=== PATIENT | female | born 1995 | race American Indian/Alaskan Native ===

== ENCOUNTER 2017-01-18 23:00 | Inpatient (IN) | payer MEDICAID ==
[2017-01-19 01:00] VITALS: BMI 22.6
--- NOTE | 2017-01-19 01:33 | ED PDOC ---
Arrival/HPI - General Chief Complaint: ENT Problem Time Seen by Provider: 01/19/17 01:28 Historian: Patient - History of Present Illness Narrative History of Present Illness (Text): 01/19/17 01:32 Linda Bond is a 21 year old female who presents to the Emergency department complaining of frontal headache since yesterday. Patient also reports associated sore throat and dizziness. Patient states she feels unsteady while ambulating. Patient denies any fever, chills, chest pain, shortness of breath, cough, nausea, vomiting, diarrhea, urinary symptoms, back pain, neck pain/ stiffness, or any other complaints. Time/Duration: 24 hours (yesterday) Symptom Onset: Gradual Symptom Course: Unchanged Activities at Onset: Rest, Light Context: Home Past Medical History - Provider Review Nursing Documentation Reviewed: Yes - Psychiatric Hx Substance Use: No Family/Social History - Physician Review Nursing Documentation Reviewed: Yes Family/Social History: No Known Family HX Smoking Status: Never Smoked Hx Alcohol Use: No Hx Substance Use: No Allergies/Home Meds Allergies/Adverse Reactions: Allergies No Known Allergies Allergy (Verified 01/19/17 01:00) Home Medications: Home Meds Medication Instructions Recorded Confirmed Ibuprofen [Motrin] 600 mg PO Q6 01/19/17 01/19/17 Lidocaine 2% Viscous [Lidocaine 2% 15 mg PO Q3 01/19/17 01/19/17 Viscous] Review of Systems - Physician Review All systems were reviewed & negative as marked: Yes - Review of Systems Constitutional: Normal. absent: Fevers Eyes: Normal ENT: Sore Throat Respiratory: Normal. absent: SOB, Cough Cardiovascular: Normal. absent: Chest Pain Gastrointestinal: Normal. absent: Abdominal Pain, Constipation, Diarrhea, Nausea, Vomiting Genitourinary Female: Normal. absent: Dysuria, Frequency, Hematuria, Urine Output Changes Musculoskeletal: Normal. absent: Back Pain, Neck Pain Skin: Normal Neurological: Headache, Dizziness Endocrine: Normal Hemo/Lymphatic: Normal Psychiatric: Normal Physical Exam Vital Signs Reviewed: Yes Vital Signs Temp Pulse Resp BP Pulse Ox 01/19/17 05:52 84 17 82/48 L 96 01/19/17 02:52 97.9 F 95 H 18 102/60 99 01/19/17 00:59 97.8 F 94 H 18 97/49 L 98 Temperature: Afebrile Blood Pressure: Normal Pulse: Regular Respiratory Rate: Normal Appearance: Positive for: Well-Appearing, Non-Toxic, Comfortable Pain Distress: None Mental Status: Positive for: Alert and Oriented X 3 - Systems Exam Head: Present: Atraumatic, Normocephalic Pupils: Present: PERRL Extroacular Muscles: Present: EOMI Conjunctiva: Present: Normal Ears: Present: NORMAL TM Mouth: Present: Moist Mucous Membranes Pharnyx: Present: Normal Neck: Present: Normal Range of Motion. No: Meningeal Signs Respiratory/Chest: Present: Clear to Auscultation, Good Air Exchange. No: Respiratory Distress, Accessory Muscle Use Cardiovascular: Present: Regular Rate and Rhythm, Normal S1, S2. No: Murmurs Abdomen: Present: Normal Bowel Sounds. No: Tenderness, Distention, Peritoneal Signs Back: Present: Normal Inspection Upper Extremity: Present: Normal Inspection. No: Cyanosis, Edema Lower Extremity: Present: Normal Inspection. No: Edema Neurological: Present: GCS=15, CN II-XII Intact, Speech Normal, Motor Func Grossly Intact, Normal Sensory Function Skin: Present: Warm, Dry, Normal Color. No: Rashes Psychiatric: Present: Alert, Oriented x 3, Normal Insight, Normal Concentration Medical Decision Making ED Course and Treatment: 01/19/17 01:32 Impression: 21 year old female complaining of headache, sore throat, and dizziness since yesterday. Plan: -- Labs -- Urinalysis -- IV fluids -- Tylenol -- Reassess and disposition Progress Notes: 01/19/17 04:32 Reviewed radiology, CT Head shows: No fractures, no intracranial hemorrhage, no mass effect or midline shift, no findings to suggest acute intracranial pathology within limits of axial noncontrast CT examination. Please note that the majority of the paranasal sinuses are not included, and this study does not exclude sinusitis. 01/19/17 04:58 Case discussed with medical radiation tech, who is aware and agrees with plan. 01/19/17 05:[address] Mullins, who is aware and agrees with plan. Accepts pt in to hospitalist service. Pt will go to Med Surge observation for Med Surge observation for dizziness and anemia. - Lab Interpretations Lab Results: 01/19/17 01:48 01/19/17 01:48 Lab Results 01/19/17 01:48: WBC 9.6, RBC 4.31, Hgb 8.6 L, Hct 28.3 L, MCV 65.7 L, MCH 20.0 L , MCHC 30.4 L, RDW 17.7 H, Plt Count 176, MPV 8.8, Sodium 136, Potassium 4.0, Chloride 98, Carbon Dioxide 26, Anion Gap 16, BUN 9, Creatinine 0.6, Est GFR ( Amer) > 60, Est GFR (Non-Af Amer) > 60, Random Glucose 88, Calcium 9.4, Total Bilirubin 0.5, AST 22, ALT 31, Alkaline Phosphatase 70, Total Protein 8.2 , Albumin 4.1, Globulin 4.0, Albumin/Globulin Ratio 1.0 L, Urine Color Yellow, Urine Appearance Cloudy, Urine pH 6.0, Ur Specific [place] >= 1.030, Urine Protein 100 H, Urine Glucose (UA) Negative, Urine Ketones >=80, Urine Blood Negative, Urine Nitrate Negative, Urine Bilirubin Negative, Urine Urobilinogen 2.0 H, Ur Leukocyte Esterase Small H, Urine RBC Negative, Urine WBC 5 - 10, Ur Epithelial Cells 6 - 8, Urine Bacteria Large, Urine Other Mucus, Urine HCG, Qual Negative I have reviewed the lab results: Yes - RAD Interpretation Narrative RAD Interpretations (Text): CT Head shows: Brain: Unremarkable. No hemorrhage. No significant white matter disease. No edema. Ventricles: Unremarkable. No ventriculomegaly. Bones/joints: Unremarkable. No acute fracture. Soft tissues: Unremarkable. Sinuses: There is minimal inclusion of the paranasal sinuses with no pathology of the included small areas of the frontal, posterior ethmoid, and sphenoid sinuses. A Mastoid air cells: Unremarkable as visualized. No mastoid effusion. IMPRESSION: No fractures, no intracranial hemorrhage, no mass effect or midline shift, no findings to suggest acute intracranial pathology within limits of axial noncontrast CT examination. Please note that the majority of the paranasal sinuses are not included, and this study does not exclude sinusitis. Radiology Orders: 01/19/17 03:46 HEAD W/O CONTRAST [CT] Stat Speech And Language Specialist: Radiologist - Medication Orders Current Medication Orders: Discontinued Medications Acetaminophen (Tylenol 325mg Tab) 650 mg PO STAT STA Stop: 01/19/17 01:35 Last Admin: 01/19/17 02:01 Dose: 650 MG MAR Pain/Vitals Document 01/19/17 02:01 [email or web address] (Rec: 01/19/17 02:02 [email or web address] [email or web address] Pain Reassessment Is This A Pain ReAssessment? No Sleep Is patient sleeping during reassessment? No Presence of Pain Presence of Pain Yes Pain Scale Used Pain Scale Used Numeric Location Pain Location Body Site Generalized Description Constant Intensity 5 Scale Used Numeric Pain Behavior Facial Grimacing Aggravating Factors Changing Position Aggravating Factors Changing Position Sodium Chloride (Sodium Chloride 0.9%) 1,000 mls @ 999 mls/hr IV .Q1H1M STA Stop: 01/19/17 02:34 Last Admin: 01/19/17 02:00 Dose: 999 MLS/HR eMAR Start Stop Document 01/19/17 02:00 [email or web address] (Rec: 01/19/17 02:00 [id number]) Intravenous Solution Start Date 01/19/17 Start Time 02:00 End Date 01/19/17 - Scribe Statement The provider has reviewed the documentation as recorded by the Anirudh Almaguer Provider Attestation: All medical record entries made by the Anirudh were at my direction and personally dictated by me. I have reviewed the chart and agree that the record accurately reflects my personal performance of the history, physical exam, medical decision making, and the department course for this patient. I have also personally directed, reviewed, and agree with the discharge instructions and disposition. Disposition/Present on Arrival - Present on Arrival Any Indicators Present on Arrival: No History of DVT/PE: No History of Uncontrolled Diabetes: No Urinary Catheter: No History of Decub. Ulcer: No History Surgical Site Infection Following: None - Disposition Have Diagnosis and Disposition been Completed?: Yes Diagnosis: Dizziness, Anemia Disposition: HOSPITALIZED Disposition Time: 05:08 Patient Plan: Observation Patient Problems: Current Active Problems Problem Status Diagnosed Anemia Acute Dizziness Acute Condition: STABLE
[2017-01-19] MEDS ORDERED: Sodium Chloride 0.9% 1,000 ML IV STA (01:34)
[2017-01-19 02:14] LABS: URINE BILIRUBIN NEGATIVE (NEGATIVE); URINE BLOOD NEGATIVE (NEGATIVE); URINE GLUCOSE (UA) NEGATIVE (NEGATIVE); URINE KETONE >=80 mg/dL (NEGATIVE); URINE LEUKOCYTE ESTERASE SMALL Leu/uL (NEGATIVE); URINE PROTEIN 100 mg/dL (<30 mg/dL)
[2017-01-19 02:21] LABS: URINE APPEARANCE CLOUDY (CLEAR); URINE COLOR YELLOW (YELLOW)
[2017-01-19 02:27] LABS: ALKALINE PHOSPHATASE 70 U/L (38-133); ALT/SGPT 31 U/L (7-56); AST/SGOT 22 U/L (15-39); BILIRUBIN,TOTAL 0.5 mg/dL (0.2-1.3); BLOOD UREA NITROGEN 9 mg/dL (7-21); CALCIUM 9.4 mg/dL (8.4-10.5); CARBON DIOXIDE 26 mmol/L (21-33); CHLORIDE 98 mmol/L (98-107); GFR AFRICAN-AMERICAN > 60; GLUCOSE,RANDOM 88 mg/dL (70-110); SODIUM 136 mmol/L (132-148); TOTAL PROTEIN 8.2 g/dL (5.8-8.3)
[2017-01-19 02:33] LABS: HEMATOCRIT 28.3 % (36.0-48.0); MEAN CELL VOLUME 65.7 fL (80.0-105.0); MEAN CORPUSCULAR HGB CONC 30.4 g/dl (31.0-37.0); MEAN PLATELET VOLUME 8.8 fl (7.0-11.0); PLATELET COUNT 176 10^3/uL (120.0-450.0); RED CELL DISTRIBUTION WIDTH 17.7 % (11.5-14.5); WHITE BLOOD COUNT 9.6 10^3/ul (4.5-11.0)
[2017-01-19 02:36] LABS: URINE RBC NEGATIVE /hpf (0-2)
[2017-01-19 02:37] LABS: URINE BACTERIA LARGE (NEG)
--- NOTE | 2017-01-19 04:30 | CT ---
EXAM: CT Head Without Intravenous Contrast CLINICAL HISTORY: 21 years old, female; Pain; Headache; Headache not specified TECHNIQUE: Axial computed tomography images of the head/brain without intravenous contrast. EXAM DATE/TIME: Exam ordered 01/19/2017 3:46 AM COMPARISON: No relevant prior studies available. FINDINGS: Brain: Unremarkable. No hemorrhage. No significant white matter disease. No edema. Ventricles: Unremarkable. No ventriculomegaly. Bones/joints: Unremarkable. No acute fracture. Soft tissues: Unremarkable. Sinuses: There is minimal inclusion of the paranasal sinuses with no pathology of the included small areas of the frontal, posterior ethmoid, and sphenoid sinuses. A Mastoid air cells: Unremarkable as visualized. No mastoid effusion. IMPRESSION: No fractures, no intracranial hemorrhage, no mass effect or midline shift, no findings to suggest acute intracranial pathology within limits of axial noncontrast CT examination. Please note that the majority of the paranasal sinuses are not included, and this study does not exclude sinusitis.
--- NOTE | 2017-01-19 06:10 | CP.PCM.HP ---
<Danya Jarrell - Last Filed: 01/19/17 06:03> History of Present Illness - History of Present Illness History of Present Illness: This is a 21Y F with no PMH who came to the ED for dizziness and fatigue x 3 days. She has had a cold the past 3 days and reports having a sore throat. It is dry and scratchy. She denies cough or mucus color change. The patient denies sick contacts and reports she has gotten her family sick from her cold. She denies fever, chills, CP, SOB, n/v/d, numbness or tingling. In the ED, patient was noted to have Hgb of 8.6. Her head CT was negative. She says her LMP was January 01 and her period are regular and last 5 days. She denies heavy bleeding , dark colored stool, vomiting blood or recent trauma. The patient does have mild abdominal pain that is intermittent and an aching pain located in the L and RLQ. She also complains of headache PMH: Denies PSH: Denies Home meds: Ibuprofen prn All: NKDA SH: Drinks occasionally, denies tobacco or drug use. She is currently not sexually active. FH: Dad- Sickle cell trait, Sister- sickle cell disease Present on Admission - Present on Admission Any Indicators Present on Admission: No Review of Systems - Constitutional Constitutional: absent: Chills, Fever - EENT Eyes: absent: Change in Vision Nose/Mouth/Throat: Sore Throat. absent: Sinus Pain, Change in Voice, Hoarsness , Throat Swelling, Tongue Swelling, Facial Pain - Cardiovascular Cardiovascular: absent: Chest Pain, Leg Edema, Syncope - Respiratory Respiratory: absent: Cough, Dyspnea, Dyspnea on Exertion, Change in Mucous Color - Gastrointestinal Gastrointestinal: Abdominal Pain. absent: Bloating, Change in Bowel Habits, Change in Stool Character, Melena, Nausea, Vomiting - Genitourinary Genitourinary: absent: Dysuria, Hematuria - Reproductive: Female Reproductive:Female: Normal Menses. absent: Amenorrhea, Currently Menstual, Heavy Menses, Abnormal Vaginal Bleeding, Sexual Dysfunction - Musculoskeletal Musculoskeletal: absent: Arthralgias, Numbness, Stiffness, Tingling - Integumentary Integumentary: absent: Change in Nails, Change in Pigmentation - Neurological Neurological: Dizziness, Weakness. absent: Numbness, Tingling - Endocrine Endocrine: absent: Cold Intolorance, Heat Intolorance - Hematologic/Lymphatic Hematologic: absent: Easy Bleeding Past Patient History - Past Social History Smoking Status: Never Smoked Alcohol: Occasional Drugs: Denies Home Situation {Lives}: With Family - PSYCHIATRIC Hx Substance Use: No - SURGICAL HISTORY Hx Surgeries: No Meds Allergies/Adverse Reactions: Allergies Allergy/AdvReac Type Severity Reaction Status Date / Time No Known Allergies Allergy Verified 01/19/17 01:00 Physical Exam - Constitutional Appears: No Acute Distress - Head Exam Head Exam: ATRAUMATIC, NORMAL INSPECTION, NORMOCEPHALIC - Eye Exam Eye Exam: PERRL. absent: Normal appearance Pupil Exam: PERRL Additional comments: pallor - ENT Exam ENT Exam: Mucous Membranes Moist Additional comments: mild erythema in oropharynx and tonsil on L mildly enlarged. No lymphadenopathy. - Neck Exam Neck exam: Positive for: Normal Inspection. Negative for: Lymphadenopathy, Thyromegaly - Respiratory Exam Respiratory Exam: Clear to Auscultation Bilateral, NORMAL BREATHING PATTERN. absent: Rales, Rhonchi, Wheezes - Cardiovascular Exam Cardiovascular Exam: Tachycardia, REGULAR RHYTHM, +S1, +S2. absent: Gallop, Rubs, Systolic Murmur - GI/Abdominal Exam GI & Abdominal Exam: Normal Bowel Sounds, Soft. absent: Mass, Rebound, Rigid, Tenderness - Extremities Exam Extremities exam: Positive for: normal inspection. Negative for: calf tenderness, pedal edema - Neurological Exam Neurological exam: Alert, CN II-XII Intact, Oriented x3 - Psychiatric Exam Psychiatric exam: Normal Affect, Normal Mood - Skin Skin Exam: Dry, Intact, Normal Color, Warm Results - Vital Signs Recent Vital Signs: Last Vital Signs Temp 97.9 F 01/19/17 02:52 Pulse 84 01/19/17 05:52 Resp 17 01/19/17 05:52 BP 82/48 L 01/19/17 05:52 Pulse Ox 96 01/19/17 05:52 - Labs Result Diagrams: 01/19/17 01:48 01/19/17 01:48 Labs: Laboratory Results - last 24 hr 01/19/17 01:48 WBC 9.6 RBC 4.31 Hgb 8.6 L Hct 28.3 L MCV 65.7 L MCH 20.0 L MCHC 30.4 L RDW 17.7 H Plt Count 176 MPV 8.8 Sodium 136 Potassium 4.0 Chloride 98 Carbon Dioxide 26 Anion Gap 16 BUN 9 Creatinine 0.6 Est GFR ( Amer) > 60 Est GFR (Non-Af Amer) > 60 Random Glucose 88 Calcium 9.4 Total Bilirubin 0.5 AST 22 ALT 31 Alkaline Phosphatase 70 Total Protein 8.2 Albumin 4.1 Globulin 4.0 Albumin/Globulin Ratio 1.0 L Urine Color Yellow Urine Appearance Cloudy Urine pH 6.0 Ur Specific [place] >= 1.030 Urine Protein 100 H Urine Glucose (UA) Negative Urine Ketones >=80 Urine Blood Negative Urine Nitrate Negative Urine Bilirubin Negative Urine Urobilinogen 2.0 H Ur Leukocyte Esterase Small H Urine RBC Negative Urine WBC 5 - 10 Ur Epithelial Cells 6 - 8 Urine Bacteria Large Urine Other Mucus Urine HCG, Qual Negative Assessment & Plan - Assessment and Plan (Free Text) Assessment: This is a 21Y F with no significant PMH admitted for symptomatic anemia. Plan: 1. Anemia - no evidence of active bleeding r/o sickle cell - Hgb 8.6 - Will check Iron studies - Will check sickle cell screen and retic count - Will check lactic acid - Heme Consulted- Dr. Whitmore - NS@100ml/hr - Continue to monitor CBC 2. Sore throat - afebrile, no leukocytosis - Rapid strep pending - Ibuprofen prn pain - Tylenol prn fever - Cepachol prn 3. Headache - Fiorecet prn GI ppx: PTX DVT ppx: SCDs Case seen, reviewed and discussed with attending. Milly Jarrell PGY1 - Date & Time Date: 01/19/17 Time: 06:17 <Elie Mullins Q - Last Filed: 01/19/17 06:45> Results - Vital Signs Recent Vital Signs: Last Vital Signs Temp 97.9 F 01/19/17 02:52 Pulse 84 01/19/17 05:52 Resp 17 01/19/17 05:52 BP 82/48 L 01/19/17 05:52 Pulse Ox 96 01/19/17 05:52 - Labs Result Diagrams: 01/19/17 01:48 01/19/17 01:48 Attending/Attestation - Attestation I have personally seen and examined this patient.: Yes I have fully participated in the care of the patient.: Yes I have reviewed all pertinent clinical information: Yes Notes (Text): 01/19/17 06:43 I agree with the above mentioned note and exam by Dr. Jarrell with the addition /exception of the followin21 y/o female presenting to the ED with dizziness and found to have a low hemoglobin. She denies heavy menstrual bleeding, no episodes of blood per rectum or dark melena; we will obtain a pelvic ultrasound to evaluate for fibroids as a possible source; also found to have a positive UTI for which she will be started on levaquin while she is in the hospital.
[2017-01-19] MEDS ORDERED: Apap-Butalbital-Caffeine 325-50-40mg Tab PO PRN (06:17)
[2017-01-19] MEDS: Sodium Chloride 0.9% 1,000 ML IV SCH (06:36)
[2017-01-19 06:53] LABS: RETIC% 0.79 % (0.5-1.5)
[2017-01-19 07:07] LABS: IRON 11 ug/dL (45-180)
[2017-01-19] MEDS: Pantoprazole 40 mg EC Tab PO SCH (08:13)
[2017-01-19] MEDS: cefTRIAXone 1 gm 100 ML IVPB SCH (09:52)
--- NOTE | 2017-01-19 11:26 | US ---
HISTORY: evaluate for fibroids/bleeding. LMP 01/01/2017 COMPARISON: None available. TECHNIQUE: Transabdominal scanning through a distended bladder was performed FINDINGS: UTERUS: Measures 8.2 x 4.1 x 5.0 cm. . Size is normal and anteverted. No fibroid or other mass lesion seen. ENDOMETRIUM: Measures 1.3 mm in diameter. Unremarkable. CERVIX: No cervical abnormality identified. RIGHT OVARY: Measures 5.7 x 3.6 x 5.9 cm. A complex right adnexal mass 3.7 x 3.5 x 3.7 cm is present Normal flow. LEFT OVARY: Measures 3.2 x 2.3 x 3.0 cm. There is minimal complex appearance much less pronounced regarding the left ovary is well. A discrete mass per se is not well appreciated coalescing small peripheral follicles is 1 consideration. Other considerations are not excluded Normal flow. FREE FLUID: Free fluid present -small amount OTHER FINDINGS: None. IMPRESSION: Complex right adnexal mass with slight heterogeneity and minimal complexity to the left ovary as well. No intrauterine gestation suggested. Patient is status regarding possible a status and beta HCG status is not known. This information is essential as the LMP may be inaccurate A right ovarian hemorrhagic cyst, right endometrioma, right complex ovarian neoplastic mass, ectopic as well as infection (early PID) are all in the differential considerations. Clinical correlation and follow-up is needed without prior studies for comparison. Gynecological consultation recommended.
[2017-01-19] MEDS ORDERED: Pneumococcal 23-Valent Vaccine IM ONE (12:38)
[2017-01-20] MEDS: Benzocaine/Menthol (Cepacol) Lozenge MT PRN ×2 (00:02→04:20)
[2017-01-20 02:15] LABS: NEUTROPHIL 61 % (50.0-70.0)
[2017-01-20 02:18] LABS: BAND 14 % (0-2); EOSINOPHIL 1 % (0.0-3.0)
[2017-01-20 02:27] LABS: MICROCYTOSIS 2+
[2017-01-20 02:28] LABS: HYPOCHROMIA 1+
[2017-01-20 02:29] LABS: PLATELET ESTIMATE NORMAL (NORMAL)
[2017-01-20 02:30] LABS: TARGET CELLS SLIGHT
[2017-01-20 02:31] LABS: TEAR DROP CELLS SLIGHT
[2017-01-20 02:35] LABS: HELMET CELLS SLIGHT
[2017-01-20] MEDS: Sodium Chloride 0.9% 1,000 ML IV SCH (04:21)
[2017-01-20 07:29] LABS: ADD MANUAL DIFF? NO
[2017-01-20 07:31] LABS: BASO # 0.03 K/mm3 (0.0-2.0); BASO % 0.5 % (0.0-3.0); EOS % 0.6 % (1.5-5.0); GRAN # 4.11 (1.4-6.5); HEMATOCRIT 24.4 % (36.0-48.0); LYMPH # 1.3 (1.2-3.4); LYMPH % 20.1 % (22.0-35.0); MEAN CELL VOLUME 65.4 fL (80.0-105.0); MEAN CORPUSCULAR HEMOGLOBIN 20.1 pg (25.0-35.0); MEAN CORPUSCULAR HGB CONC 30.7 g/dl (31.0-37.0); MEAN PLATELET VOLUME 9.1 fl (7.0-11.0); MONO % 14.8 % (1.0-6.0); PLATELET COUNT 162 10^3/uL (120.0-450.0); RED CELL DISTRIBUTION WIDTH 17.8 % (11.5-14.5); WHITE BLOOD COUNT 6.4 10^3/ul (4.5-11.0)
[2017-01-20] MEDS ORDERED: Sodium Chloride 0.9% 1,000 ML IV SCH (07:41)
[2017-01-20] MEDS: Pantoprazole 40 mg EC Tab PO SCH (08:00)
[2017-01-20 08:44] LABS: ALB/GLOB RATIO 0.9 (1.1-1.8); ALKALINE PHOSPHATASE 56 U/L (38-133); ALT/SGPT 25 U/L (7-56); AST/SGOT 26 U/L (15-39); BILIRUBIN,TOTAL 0.3 mg/dL (0.2-1.3); BLOOD UREA NITROGEN 3 mg/dL (7-21); CALCIUM 8.7 mg/dL (8.4-10.5); CARBON DIOXIDE 29 mmol/L (21-33); CHLORIDE 103 mmol/L (98-107); GFR AFRICAN-AMERICAN > 60; GLUCOSE,RANDOM 81 mg/dL (70-110); POTASSIUM 3.8 mmol/L (3.6-5.0); SODIUM 138 mmol/L (132-148); TOTAL PROTEIN 7.1 g/dL (5.8-8.3)
[2017-01-20] MEDS: cefTRIAXone 1 gm 100 ML IVPB SCH (09:28)
[2017-01-20 10:38] LABS: INR 1.08 (0.93-1.08); PARTIAL THROMBOPLASTIN TIME 31.7 Seconds (23.7-30.8)
--- NOTE | 2017-01-20 16:11 | CP.PCM.PN ---
<Daily Menjivar - Last Filed: 01/20/17 16:07> Subjective - Date & Time of Evaluation Date of Evaluation: 01/20/17 Time of Evaluation: 16:08 - Subjective Subjective: HOSPITALIST PROGRESS NOTE Pt is seen and examined at bedside. Pt is resting comfortably. Pt is tolerating diet. She denies feeling dizzy or lightheaded when she walks around her room. patient denies having any CP, SOB, abd pain, N/V/D/C. Objective - Vital Signs/Intake and Output Vital Signs (last 24 hours): Temp Pulse Resp BP Pulse Ox 97.8 F 85 20 108/65 98 01/20/17 07:30 01/20/17 07:30 01/20/17 07:30 01/20/17 07:30 01/20/17 07:30 - Medications Medications: Current Medications Acetaminophen (Tylenol 325mg Tab) 650 mg PO Q4 PRN PRN Reason: Fever >100.4 F Last Admin: 01/19/17 22:04 Dose: 650 mg Acetaminophen/Butalbital/Caffeine (Fioricet) 1 tab PO Q4H PRN PRN Reason: Headache Benzocaine/Menthol (Cepacol Sore Throat) 1 frieda MT Q2H PRN PRN Reason: Sore Throat Last Admin: 01/20/17 04:20 Dose: 1 frieda Ceftriaxone Sodium (Rocephin 1 Gram Ivpb) 100 mls @ 100 mls/hr IVPB DAILY JALYN PRN Reason: Protocol Last Admin: 01/20/17 09:28 Dose: 100 mls/hr Pantoprazole Sodium (Protonix Ec Tab) 40 mg PO ACB JALYN Last Admin: 01/20/17 08:00 Dose: 40 mg - Labs Labs: PT 11.7 Seconds (9.9-11.8) 01/20/17 10:15 INR 1.08 (0.93-1.08) 01/20/17 10:15 APTT 31.7 Seconds (23.7-30.8) H 01/20/17 10:15 - Constitutional Appears: Non-toxic, No Acute Distress - Head Exam Head Exam: ATRAUMATIC - ENT Exam ENT Exam: Mucous Membranes Moist - Respiratory Exam Respiratory Exam: Clear to Ausculation Bilateral, NORMAL BREATHING PATTERN. absent: Rales, Rhonchi, Wheezes - Cardiovascular Exam Cardiovascular Exam: REGULAR RHYTHM, RRR. absent: Gallop, Rubs, +S1, +S2, Murmur - GI/Abdominal Exam GI & Abdominal Exam: Soft, Normal Bowel Sounds. absent: Distended, Firm, Guarding, Rigid, Tenderness - Extremities Exam Extremities Exam: absent: Pedal Edema, Tenderness - Neurological Exam Neurological Exam: Alert, Awake, Oriented x3 - Psychiatric Exam Psychiatric exam: Normal Affect, Normal Mood - Skin Skin Exam: Dry, Intact, Normal Color, Warm Assessment and Plan - Assessment and Plan (Free Text) Assessment: This is a 21Y F with no significant PMH admitted for symptomatic anemia. Hgb today is 7.5. Pelvic US shows complex right adenexal mass with slight heterogenesity, right ovarian hemorrhagic cyst, right endometrioma, right complex ovarian neoplastic mass. Plan: 1. Anemia - no evidence of active bleeding r/o sickle cell - Iron 11 (low) TIBC 415 (normal) % sat 3 (low) - Peripheral smear shows 61% neutrophils, RBC are microcytic and hypochromic with anisocytosis, few tear drop cells, target cells and spur cells. Platelets are normal - Will check sickle cell screen negative - retic count is normal - Lactic acid is normal - Heme Consulted- Dr. Whitmore - Continue to monitor CBC - will continue iron infusions 2. Sore throat - afebrile, no leukocytosis - Rapid strep negative - Ibuprofen prn pain - Tylenol prn fever - Cepachol prn 3. Headache -Tylenol 4. Right ovarian hemorrhagic cyst - Pelvic US showed complex right adenexal mass with slight heterogenecity, right ovarian hemorrhagic cyst, right endometrioma, right complex ovarian neoplastic mass - OBGYN is consulted GI ppx: PTX DVT ppx: SCDs Case seen, reviewed and discussed with attending Dr. Wu. <Diana Segovia - Last Filed: 01/20/17 18:20> Objective - Vital Signs/Intake and Output Vital Signs (last 24 hours): Temp Pulse Resp BP Pulse Ox 97.8 F 85 20 108/65 98 01/20/17 07:30 01/20/17 07:30 01/20/17 07:30 01/20/17 07:30 01/20/17 07:30 - Medications Medications: Current Medications Acetaminophen (Tylenol 325mg Tab) 650 mg PO Q4 PRN PRN Reason: Fever >100.4 F Last Admin: 01/19/17 22:04 Dose: 650 mg Acetaminophen/Butalbital/Caffeine (Fioricet) 1 tab PO Q4H PRN PRN Reason: Headache Benzocaine/Menthol (Cepacol Sore Throat) 1 frieda MT Q2H PRN PRN Reason: Sore Throat Last Admin: 01/20/17 04:20 Dose: 1 frieda Ceftriaxone Sodium (Rocephin 1 Gram Ivpb) 100 mls @ 100 mls/hr IVPB DAILY JALYN PRN Reason: Protocol Last Admin: 01/20/17 09:28 Dose: 100 mls/hr Iron Sucrose 100 mg/ Sodium (Chloride) 105 mls @ 210 mls/hr IVPB 0600 JALYN Stop: 01/21/17 06:29 Pantoprazole Sodium (Protonix Ec Tab) 40 mg PO ACB JALYN Last Admin: 01/20/17 08:00 Dose: 40 mg - Labs Labs: PT 11.7 Seconds (9.9-11.8) 01/20/17 10:15 INR 1.08 (0.93-1.08) 01/20/17 10:15 APTT 31.7 Seconds (23.7-30.8) H 01/20/17 10:15 Assessment and Plan - Assessment and Plan (Free Text) Assessment: attending note; Patient seen and examined with resident. Patient is a 21-year-old female admitted with abdominal pain and dizziness. CT head is negative. Pelvic ultrasound showed possible hemorrhagic cyst versus complex cyst. Case discussed with [employer] in detail. Anemia; sickle cell trait is negative. Iron deficiency anemia. Started on IV iron. Hematology evaluation requested. possible discharge home tomorrow if clinically stable. Patient needs to follow up with PMD . Needs close follow-up with hematology and [employer] as outpatient. Attending/Attestation - Attestation I have personally seen and examined this patient.: Yes I have fully participated in the care of the patient.: Yes I have reviewed all pertinent clinical information, including history, physical exam and plan: Yes
--- NOTE | 2017-01-20 21:22 | CON ---
DATE: 01/20/2017 HISTORY OF PRESENT ILLNESS: This is a 21-year-old X6F4-4-1-1, with a last menstrual period of 01/01/2017, who presented to the ER on 01/19/2017 with a frontal headache, dizziness and fatigue for a few days, sore throat, dizziness, and felt unsteady with walking. The patient reports that she was only taking Motrin as needed at home. PAST MEDICAL HISTORY: Healthy. PAST SURGICAL HISTORY: None. MEDICATIONS: Acetaminophen as needed. Fioricet as needed for headache. Benzocaine menthol for her sore throat. Rocephin 1 g IV daily. Iron sucrose 200 mg daily. Pantoprazole. ALLERGIES: No known drug allergies. FAMILY HISTORY: Father and sister have sickle cell disease. SOCIAL HISTORY: The patient denies tobacco, alcohol use, and illicit drug use. GYNECOLOGIC HISTORY: The patient reports her menarche was at 16, has monthly periods and bleeds for 5 days. The patient denies any history of heavy bleeding with her periods. She denies any history of any STDs or any abnormal Paps. The patient reports that she sees a BOLT CUTTER at [facility]. PAST OBSTETRICAL HISTORY: She has had 1 , which she terminated. VITAL SIGNS: Afebrile. Vital signs are stable. GENERAL: The patient appears comfortable lying in bed. ABDOMEN: Soft, nontender. EXTREMITIES: Nontender. VAGINAL EXAMINATION: The patient was very tense during the exam. There was no cervical motion tenderness appreciated. No adnexal masses palpated. LABORATORIES: White count is normal. Hemoglobin was 8.6 on admission, and has gone down to 7.5. Platelets are normal. She has elevated bands and several abnormal red cell indices. Sickle cell screen is negative. Group A beta strep antigen is negative, and Urine hCG qualitative is negative. Iron is low at 11, and percent saturation is low at 3. Otherwise, comprehensive metabolic panel is within normal limits. Lactic acid is normal. PTT is mildly elevated at 31.7 , and her PT and INR within normal limits. The patient had a transabdominal pelvic ultrasound that revealed right ovary with a complex right adnexal mass measuring 3.7 x 3.5 x 3.7 cm. The left ovary with normal flow. The left ovary had a minimal complex appearance, much less pronounced regarding the left ovary as well. A discrete mass per se, is not well appreciated. Coalescing small peripheral follicles is one consideration. Other considerations are not excluded. Normal flow. There was only a small amount of free fluid present. The impression was a complex right adnexal mass with slight heterogeneity and minimal complexity to the left ovary as well. A right ovarian hemorrhagic cyst, right endometrioma, right complex ovarian neoplastic mass, ectopic, as well as infection, early PID are all the differential considerations. Clinical correlation and followup is needed. Without prior studies for comparison, gynecologic consultation was recommended. ASSESSMENT AND PLAN: This is a 21-year-old, T5G5-5-5-5, admitted to [facility] with dizziness, fatigue, and sore throat, diagnosed with anemia, and was found to have a complex right adnexal mass that was 3.7 cm. I recommend that the patient follow up with her BOLT CUTTER at [facility] to follow this complex right adnexal mass. The patient is not , so this cannot be an ectopic. I do not think this is likely PID given that she is afebrile, has a normal white count, and no cervical motion tenderness. Rajinder Siddiqi MD cc: [id number] TT: 01/20/2017 21:21:18 Confirmation # [id number] Dictation # [id number] jn MTDD
[2017-01-21] MEDS ORDERED: Iron Sucrose 100 mg/5 ml Inj IVP ONE (06:00)
[2017-01-21 07:19] LABS: ADD MANUAL DIFF? NO
[2017-01-21 07:24] LABS: BASO # 0.03 K/mm3 (0.0-2.0); BASO % 0.5 % (0.0-3.0); EOS # 0.1 (0.0-0.7); EOS % 1.4 % (1.5-5.0); GRAN # 4.24 (1.4-6.5); GRAN % 66.5 % (50.0-68.0); HEMATOCRIT 26.2 % (36.0-48.0); LYMPH # 1.4 (1.2-3.4); LYMPH % 21.9 % (22.0-35.0); MEAN CORPUSCULAR HEMOGLOBIN 19.6 pg (25.0-35.0); MEAN CORPUSCULAR HGB CONC 30.2 g/dl (31.0-37.0); MEAN PLATELET VOLUME 9.4 fl (7.0-11.0); MONO # 0.6 (0.1-0.6); MONO % 9.7 % (1.0-6.0); PLATELET COUNT 206 10^3/uL (120.0-450.0); RED CELL DISTRIBUTION WIDTH 17.7 % (11.5-14.5); WHITE BLOOD COUNT 6.4 10^3/ul (4.5-11.0)
[2017-01-21] MEDS ORDERED: Barium Sulfate Susp 2.1% w/v, 2.0% w/w 450 mL Bottle PO ONE (07:26)
[2017-01-21 08:04] LABS: HEMATOCRIT 24.9 % (35.0-45.0); HEMOGLOBIN 7.5 g/dL (11.7-15.5); RDW 19.5 % (11.0-15.0)
[2017-01-21] MEDS: Pantoprazole 40 mg EC Tab PO SCH (08:30)
[2017-01-21] MEDS ORDERED: Iohexol 350 MG/100 ML VIAL ONE (09:23)
--- NOTE | 2017-01-21 10:21 | CT ---
CT chest, abdomen, and pelvis with IV contrast Indication: Rule out mass Technique: Contiguous axial images of the chest, abdomen, and pelvis. Coronal and Sagittal reformats generated and reviewed. This CT exam was performed using 1 or more of the following dose reduction techniques: Automated exposure control, adjustment of the MAA and/or kV according to patient size, and/or use of iterative reconstruction technique. Oral contrast was administered. 100 mL Omnipaque 350. Radiation dose: Total exam DLP = 310.48 MGy-cm. Comparison: Pelvic ultrasound performed 01/19/17 Findings: Visualized portions of the inferior thyroid gland appear unremarkable. The mediastinal and hilar vascular structures appear within normal limits. The heart appears within normal limits of size. Patchy right greater than left lower lobe infiltrates. No pleural effusion. No pneumothorax. No suspicious pulmonary nodule measuring greater than 5 mm identified. The liver, spleen, kidneys, pancreas, adrenal glands, and gallbladder appear unremarkable. The stomach is nondistended. The bowel loops appear within normal limits of caliber without evidence of intestinal obstruction. The appendix appears within normal limits of caliber. No secondary signs of acute appendicitis. Moderate to severe constipation. There is no definite free air. Uterus is present. Complex right adnexal cystic mass measuring approximately 5.3 x 4.4 cm (series 6, image 111). The urinary bladder appears unremarkable. No acute osseous abnormality is detected. Impression: Complex right adnexal cystic mass of uncertain etiology. Considerations include but not limited to hydrosalpinx/ PID, complex cystic ovarian neoplastic mass, complex cyst. Correlate clinically and recommend gynecologic consultation. Patchy right greater than left lower lobe infiltrate. Moderate to severe constipation.
[2017-01-21] MEDS: cefTRIAXone 1 gm 100 ML IVPB SCH (10:33)
[2017-01-21] MEDS ORDERED: Magnesium Citrate Oral SOL (300 ml) PO ONE (10:33)
--- NOTE | 2017-01-21 10:35 | CON ---
DATE: 01/21/2017 This is a 21-year-old woman with severe anemia. The patient is admitted for headaches and tiredness. PHYSICAL EXAMINATION: SKIN: No petechiae, no bruises, no telangiectasia. HEENT: Anicteric. NODES: None palpable in the axillary, cervical, supraclavicular or inguinal regions. LUNGS: Clear at present. BACK: No vertebral tenderness. HEART: S1, S2. ABDOMEN: Shows no liver, no spleen. EXTREMITIES: No edema. CENTRAL NERVOUS SYSTEM: No focal finding. The hemoglobin was found to be 7.9 with an MCV of 65 and iron of 3%. The patient tells me that her f ather and sister have sickle. I am not sure if it is trait or sickle disease. So that is certainly a possibility in her family and we are awaiting hemoglobin electrophoresis. However, she also has an iron deficiency and she tells me that she eats ice all day long, so this is a pica due to the iron d eficiency. I would recommend that she be put on first a gluconate such as brand name, 1 tablet p.o. once a day. That is milder than the ferrous sulfate and she will be able to tolerate it better . You could also, while she is in the hospital, give her an IV of Venofer or Ferrlecit before she le aves. However, she should be put on the iron pills and she should be checked by her certified physician's assistant within 2-3 weeks to make sure that the blood is starting to go up. If she is taking the pills, it should s tart going up in 2 weeks. It should be about 75% improved by 4 weeks and by around 6 weeks, it shoul d be up to about normal. So at this point, I would recommend that she has treatment for the iron def iciency. Percy Myranda THOMAS cc: [id number] TT: 01/21/2017 10:34:59 Confirmation # [id number] Dictation # [id number]
--- NOTE | 2017-01-21 13:27 | CP.PCM.DIS ---
<Daily Menjivar - Last Filed: 01/22/17 12:11> Provider - Provider Date of Admission: 01/20/17 12:49 Attending physician: Diana Segovia MD Primary care physician: Dr. Wu Consults: OBGYN: Dr. Siddiqi Heme/onc: Dr. Whitmore Time Spent in preparation of Discharge (in minutes): 45 Diagnosis - Discharge Diagnosis (1) Anemia Status: Chronic (2) Dizziness Status: Acute (3) Right ovarian cyst Status: Acute Hospital Course - Lab Results Lab Results: Most Recent Lab Values WBC 6.4 10^3/ul (4.5-11.0) 01/21/17 07:00 RBC 4.03 10^6/uL (3.5-6.1) 01/21/17 07:00 Hgb 7.9 gm/dL (12.0-16.0) L 01/21/17 07:00 Hct 26.2 % (36.0-48.0) L 01/21/17 07:00 MCV 65.0 fL (80.0-105.0) L 01/21/17 07:00 MCH 19.6 pg (25.0-35.0) L 01/21/17 07:00 MCHC 30.2 g/dl (31.0-37.0) L 01/21/17 07:00 RDW 17.7 % (11.5-14.5) H 01/21/17 07:00 Plt Count 206 10^3/uL (120.0-450.0) 01/21/17 07:00 MPV 9.4 fl (7.0-11.0) 01/21/17 07:00 Gran % 66.5 % (50.0-68.0) 01/21/17 07:00 Lymph % (Auto) 21.9 % (22.0-35.0) L 01/21/17 07:00 [place] % (Auto) 9.7 % (1.0-6.0) H 01/21/17 07:00 Eos % (Auto) 1.4 % (1.5-5.0) L 01/21/17 07:00 Baso % (Auto) 0.5 % (0.0-3.0) 01/21/17 07:00 Gran # 4.24 (1.4-6.5) 01/21/17 07:00 Lymph # 1.4 (1.2-3.4) 01/21/17 07:00 [place] # 0.6 (0.1-0.6) 01/21/17 07:00 Eos # 0.1 (0.0-0.7) 01/21/17 07:00 Baso # 0.03 K/mm3 (0.0-2.0) 01/21/17 07:00 Neutrophils % (Manual) 61 % (50.0-70.0) 01/19/17 01:48 Band Neutrophils % 14 % (0-2) H* 01/19/17 01:48 Lymphocytes % (Manual) 18 % (22.0-35.0) L 01/19/17 01:48 Monocytes % (Manual) 6 % (1.0-6.0) 01/19/17 01:48 Eosinophils % (Manual) 1 % (0.0-3.0) 01/19/17 01:48 Platelet Evaluation Normal (NORMAL) 01/19/17 01:48 Hypochromasia 1+ 01/19/17 01:48 Microcytosis (manual) 2+ 01/19/17 01:48 Sickle Cells Slight 01/19/17 01:48 Target Cells Slight 01/19/17 01:48 Tear Drop Cells Slight 01/19/17 01:48 Helmet Cells Slight 01/19/17 01:48 Acanthocytes (Spur) Slight 01/19/17 01:48 Retic Count 0.79 % (0.5-1.5) 01/19/17 01:48 Sickle Cell Screen Negative (Negative) 01/19/17 01:48 Hemoglobinopathy Red Blood Count 3.83 Mill/mcL (3.80-5.10) 01/20/17 07:00 Hemoglobinopathy Hct 24.9 % (35.0-45.0) L 01/20/17 07:00 Hemoglobinopathy Hgb 7.5 g/dL (11.7-15.5) L 01/20/17 07:00 Hemoglobinopathy MCV 64.9 fL (80.0-100.0) L 01/20/17 07:00 Hemoglobinopathy MCH 19.6 pg (27.0-33.0) L 01/20/17 07:00 Hemoglobinopathy RDW 19.5 % (11.0-15.0) H 01/20/17 07:00 PT 11.7 Seconds (9.9-11.8) 01/20/17 10:15 INR 1.08 (0.93-1.08) 01/20/17 10:15 APTT 31.7 Seconds (23.7-30.8) H 01/20/17 10:15 Sodium 138 mmol/L (132-148) 01/20/17 07:40 Potassium 3.8 mmol/L (3.6-5.0) 01/20/17 07:40 Chloride 103 mmol/L (98-107) 01/20/17 07:40 Carbon Dioxide 29 mmol/L (21-33) 01/20/17 07:40 Anion Gap 10 (10-20) 01/20/17 07:40 BUN 3 mg/dL (7-21) L 01/20/17 07:40 Creatinine 0.5 mg/dL (0.5-1.4) 01/20/17 07:40 Est GFR ( Amer) > 60 01/20/17 07:40 Est GFR (Non-Af Amer) > 60 01/20/17 07:40 Random Glucose 81 mg/dL (70-110) 01/20/17 07:40 Lactic Acid 0.7 mmol/L (0.7-2.1) 01/19/17 07:10 Calcium 8.7 mg/dL (8.4-10.5) 01/20/17 07:40 Iron 11 ug/dL (45-180) L 01/19/17 01:48 TIBC 415 ug/dL (265-497) 01/19/17 01:48 % Saturation 3 % (20-55) L 01/19/17 01:48 Ferritin 19.2 ng/mL 01/19/17 01:48 Total Bilirubin 0.3 mg/dL (0.2-1.3) 01/20/17 07:40 AST 26 U/L (15-39) 01/20/17 07:40 ALT 25 U/L (7-56) 01/20/17 07:40 Alkaline Phosphatase 56 U/L (38-133) 01/20/17 07:40 Total Protein 7.1 g/dL (5.8-8.3) 01/20/17 07:40 Albumin 3.4 g/dL (3.0-4.8) 01/20/17 07:40 Globulin 3.6 gm/dL 01/20/17 07:40 Albumin/Globulin Ratio 0.9 (1.1-1.8) L 01/20/17 07:40 Urine Color Yellow (YELLOW) 01/19/17 01:48 Urine Appearance Cloudy (CLEAR) 01/19/17 01:48 Urine pH 6.0 (4.7-8.0) 01/19/17 01:48 Ur Specific [place] >= 1.030 (1.005-1.035) 01/19/17 01:48 Urine Protein 100 mg/dL (<30 mg/dL) H 01/19/17 01:48 Urine Glucose (UA) Negative mg/dL (NEGATIVE) 01/19/17 01:48 Urine Ketones >=80 mg/dL (NEGATIVE) 01/19/17 01:48 Urine Blood Negative (NEGATIVE) 01/19/17 01:48 Urine Nitrate Negative (NEGATIVE) 01/19/17 01:48 Urine Bilirubin Negative (NEGATIVE) 01/19/17 01:48 Urine Urobilinogen 2.0 E.U./dL (<1 E.U./dL) H 01/19/17 01:48 Ur Leukocyte Esterase Small [place]/uL (NEGATIVE) H 01/19/17 01:48 Urine RBC Negative /hpf (0-2) 01/19/17 01:48 Urine WBC 5 - 10 /hpf (0-6) 01/19/17 01:48 Ur Epithelial Cells 6 - 8 /hpf (0-5) 01/19/17 01:48 Urine Bacteria Large (NEG) 01/19/17 01:48 Urine Other Mucus 01/19/17 01:48 Urine HCG, Qual Negative (NEGATIVE) 01/19/17 01:48 HIV 1&2 Antibody Screen Negative (NEGATIVE) 01/21/17 07:30 Grp A Beta Strep Ag Negative (NEGATIVE) 01/19/17 06:34 Blood Type O POSITIVE 01/20/17 08:40 Blood Type Confirm O POSITIVE 01/20/17 10:15 Antibody Screen Negative 01/20/17 08:40 BBK History Checked No verified bt 01/20/17 08:40 - Hospital Course Hospital Course: This is a 21Y F with no PMH who came to the ED for dizziness and fatigue x 3 days. She has had a cold the past 3 days and reports having a sore throat. It is dry and scratchy. She denies cough or mucus color change. The patient denies sick contacts and reports she has gotten her family sick from her cold. She denies fever, chills, CP, SOB, n/v/d, numbness or tingling. In the ED, patient was noted to have Hgb of 8.6. Her head CT was negative. She says her LMP was January 01 and her period are regular and last 5 days. She denies heavy bleeding , dark colored stool, vomiting blood or recent trauma. The patient does have mild abdominal pain that is intermittent and an aching pain located in the L and RLQ. She also complains of headache Patient was worked up for anemia with iron studies and ferritin. Patient was found to have iron, TIBC, % saturation and ferritin. Patient also has family history of sickle cell trait and disease. Patient was screened for sickle cell which was negative. Patient's peripheral smear showed 61% neutrophils, RBCs that are microcytic and hypochromic with aniosocytosis, few tear drop cells and spur cells, and normal platelets. Heme/onc was consulted. Patient was given IV iron infusions and her Hgb remained stable during visit. Heme/onc recommended continuing iron supplementation for patient as the anemia was most likely iron deficiency anemia. Patient also had a pelvic US during her stay which showed complex right adenexal mass with slight heterogenecity, right ovarian hemorrhagic cyst. CT of abd/pelvis showed complex right adenexal mass of uncertain etiology and moderate to severe constipation. OBGYN was consulted and recommended patient to follow up as outpatient with [facility]. Patient's abdominal pain improved. Patient was also found to have a UTI and was treated with antibiotics during her stay. Please follow up with PMD after discharge Follow up with OBGYN after discharge. Patient is sent home on the following medications: Ferrous sulfate 325 mg PO BID #60, Colace 100 mg TID prn #90 pills, Levaquin 500 mg PO QD #7. Medications will be delivered to patient before discharge. Please see MAR for full details. - Date & Time of H&P Date of H&P: 01/21/17 Time of H&P: 13:20 Discharge Exam - Head Exam Head Exam: ATRAUMATIC - Eye Exam Eye Exam: EOMI Pupil Exam: PERRL - ENT Exam ENT Exam: Mucous Membranes Moist - Respiratory Exam Respiratory Exam: Clear to PA & Lateral, NORMAL BREATHING PATTERN. absent: Rales, Rhonchi, Wheezes - Cardiovascular Exam Cardiovascular Exam: REGULAR RHYTHM, +S1, +S2. absent: Diastolic murmur, Gallop , Rubs, Systolic Murmur - GI/Abdominal Exam GI & Abdominal Exam: Normal Bowel Sounds, Soft, Unremarkable. absent: Distended , Firm, Guarding, Rigid, Tenderness - Neurological Exam Neurological exam: Alert, Oriented x3 - Psychiatric Exam Psychiatric exam: Normal Affect, Normal Mood - Skin Skin Exam: Dry, Intact, Normal Color, Warm Discharge Plan - Discharge Medications Prescriptions: Docusate [Colace] 100 mg PO TID #30 cap Ferrous Sulfate 325 mg PO BID #60 tablet levoFLOXacin [Levaquin] 500 mg PO DAILY #7 tab - Follow Up Plan Condition: STABLE Disposition: HOME/ ROUTINE Instructions: Regular Diet (DC), Dizziness (GEN), Anemia (GEN) Additional Instructions: Please follow up with PMD after discharge Follow up with OBGYN after discharge. Patient is sent home on the following medications: Ferrous sulfate 325 mg PO BID #60, Colace 100 mg TID prn #90 pills, Levaquin 500 mg PO QD #7. Medications will be delivered to patient before discharge. <Diana Segovia - Last Filed: 01/22/17 13:09> Provider - Provider Date of Admission: 01/20/17 12:49 Attending physician: Diana Segovia MD Time Spent in preparation of Discharge (in minutes): 35 Hospital Course - Lab Results Lab Results: Most Recent Lab Values WBC 6.4 10^3/ul (4.5-11.0) 01/21/17 07:00 RBC 4.03 10^6/uL (3.5-6.1) 01/21/17 07:00 Hgb 7.9 gm/dL (12.0-16.0) L 01/21/17 07:00 Hct 26.2 % (36.0-48.0) L 01/21/17 07:00 MCV 65.0 fL (80.0-105.0) L 01/21/17 07:00 MCH 19.6 pg (25.0-35.0) L 01/21/17 07:00 MCHC 30.2 g/dl (31.0-37.0) L 01/21/17 07:00 RDW 17.7 % (11.5-14.5) H 01/21/17 07:00 Plt Count 206 10^3/uL (120.0-450.0) 01/21/17 07:00 MPV 9.4 fl (7.0-11.0) 01/21/17 07:00 Gran % 66.5 % (50.0-68.0) 01/21/17 07:00 Lymph % (Auto) 21.9 % (22.0-35.0) L 01/21/17 07:00 [place] % (Auto) 9.7 % (1.0-6.0) H 01/21/17 07:00 Eos % (Auto) 1.4 % (1.5-5.0) L 01/21/17 07:00 Baso % (Auto) 0.5 % (0.0-3.0) 01/21/17 07:00 Gran # 4.24 (1.4-6.5) 01/21/17 07:00 Lymph # 1.4 (1.2-3.4) 01/21/17 07:00 [place] # 0.6 (0.1-0.6) 01/21/17 07:00 Eos # 0.1 (0.0-0.7) 01/21/17 07:00 Baso # 0.03 K/mm3 (0.0-2.0) 01/21/17 07:00 Neutrophils % (Manual) 61 % (50.0-70.0) 01/19/17 01:48 Band Neutrophils % 14 % (0-2) H* 01/19/17 01:48 Lymphocytes % (Manual) 18 % (22.0-35.0) L 01/19/17 01:48 Monocytes % (Manual) 6 % (1.0-6.0) 01/19/17 01:48 Eosinophils % (Manual) 1 % (0.0-3.0) 01/19/17 01:48 Platelet Evaluation Normal (NORMAL) 01/19/17 01:48 Hypochromasia 1+ 01/19/17 01:48 Microcytosis (manual) 2+ 01/19/17 01:48 Sickle Cells Slight 01/19/17 01:48 Target Cells Slight 01/19/17 01:48 Tear Drop Cells Slight 01/19/17 01:48 Helmet Cells Slight 01/19/17 01:48 Acanthocytes (Spur) Slight 01/19/17 01:48 Retic Count 0.79 % (0.5-1.5) 01/19/17 01:48 Sickle Cell Screen Negative (Negative) 01/19/17 01:48 Hemoglobin A 97.0 Percent (>96.0) 01/20/17 07:00 Hemoglobin A2 2.0 Percent (1.8-3.5) 01/20/17 07:00 Hemoglobin C 0.0 Percent (0.0-0.0) 01/20/17 07:00 Hemoglobin F () <1.0 Percent (<2.0) 01/20/17 07:00 Hemoglobin S 0.0 Percent (0.0-0.0) 01/20/17 07:00 Variant Hemoglobin 0.0 Percent (0.0-0.0) 01/20/17 07:00 Hemoglobinopathy Red Blood Count 3.83 Mill/mcL (3.80-5.10) 01/20/17 07:00 Hemoglobinopathy Hct 24.9 % (35.0-45.0) L 01/20/17 07:00 Hemoglobinopathy Hgb 7.5 g/dL (11.7-15.5) L 01/20/17 07:00 Hemoglobinopathy MCV 64.9 fL (80.0-100.0) L 01/20/17 07:00 Hemoglobinopathy MCH 19.6 pg (27.0-33.0) L 01/20/17 07:00 Hemoglobinopathy RDW 19.5 % (11.0-15.0) H 01/20/17 07:00 Hemoglobinopathy Interp See note (()) 01/20/17 07:00 PT 11.7 Seconds (9.9-11.8) 01/20/17 10:15 INR 1.08 (0.93-1.08) 01/20/17 10:15 APTT 31.7 Seconds (23.7-30.8) H 01/20/17 10:15 Sodium 138 mmol/L (132-148) 01/20/17 07:40 Potassium 3.8 mmol/L (3.6-5.0) 01/20/17 07:40 Chloride 103 mmol/L (98-107) 01/20/17 07:40 Carbon Dioxide 29 mmol/L (21-33) 01/20/17 07:40 Anion Gap 10 (10-20) 01/20/17 07:40 BUN 3 mg/dL (7-21) L 01/20/17 07:40 Creatinine 0.5 mg/dL (0.5-1.4) 01/20/17 07:40 Est GFR ( Amer) > 60 01/20/17 07:40 Est GFR (Non-Af Amer) > 60 01/20/17 07:40 Random Glucose 81 mg/dL (70-110) 01/20/17 07:40 Lactic Acid 0.7 mmol/L (0.7-2.1) 01/19/17 07:10 Calcium 8.7 mg/dL (8.4-10.5) 01/20/17 07:40 Iron 11 ug/dL (45-180) L 01/19/17 01:48 TIBC 415 ug/dL (265-497) 01/19/17 01:48 % Saturation 3 % (20-55) L 01/19/17 01:48 Ferritin 19.2 ng/mL 01/19/17 01:48 Total Bilirubin 0.3 mg/dL (0.2-1.3) 01/20/17 07:40 AST 26 U/L (15-39) 01/20/17 07:40 ALT 25 U/L (7-56) 01/20/17 07:40 Alkaline Phosphatase 56 U/L (38-133) 01/20/17 07:40 Total Protein 7.1 g/dL (5.8-8.3) 01/20/17 07:40 Albumin 3.4 g/dL (3.0-4.8) 01/20/17 07:40 Globulin 3.6 gm/dL 01/20/17 07:40 Albumin/Globulin Ratio 0.9 (1.1-1.8) L 01/20/17 07:40 Urine Color Yellow (YELLOW) 01/19/17 01:48 Urine Appearance Cloudy (CLEAR) 01/19/17 01:48 Urine pH 6.0 (4.7-8.0) 01/19/17 01:48 Ur Specific [place] >= 1.030 (1.005-1.035) 01/19/17 01:48 Urine Protein 100 mg/dL (<30 mg/dL) H 01/19/17 01:48 Urine Glucose (UA) Negative mg/dL (NEGATIVE) 01/19/17 01:48 Urine Ketones >=80 mg/dL (NEGATIVE) 01/19/17 01:48 Urine Blood Negative (NEGATIVE) 01/19/17 01:48 Urine Nitrate Negative (NEGATIVE) 01/19/17 01:48 Urine Bilirubin Negative (NEGATIVE) 01/19/17 01:48 Urine Urobilinogen 2.0 E.U./dL (<1 E.U./dL) H 01/19/17 01:48 Ur Leukocyte Esterase Small [place]/uL (NEGATIVE) H 01/19/17 01:48 Urine RBC Negative /hpf (0-2) 01/19/17 01:48 Urine WBC 5 - 10 /hpf (0-6) 01/19/17 01:48 Ur Epithelial Cells 6 - 8 /hpf (0-5) 01/19/17 01:48 Urine Bacteria Large (NEG) 01/19/17 01:48 Urine Other Mucus 01/19/17 01:48 Urine HCG, Qual Negative (NEGATIVE) 01/19/17 01:48 HIV 1&2 Antibody Screen Negative (NEGATIVE) 01/21/17 07:30 Grp A Beta Strep Ag Negative (NEGATIVE) 01/19/17 06:34 Blood Type O POSITIVE 01/20/17 08:40 Blood Type Confirm O POSITIVE 01/20/17 10:15 Antibody Screen Negative 01/20/17 08:40 BBK History Checked No verified bt 01/20/17 08:40 - Hospital Course Hospital Course: attending note; Patient seen and examined with resident. Patient is a 21-year-old female admitted with abdominal pain and dizziness. CT head is negative. Pelvic ultrasound showed possible hemorrhagic cyst versus complex cyst. [facility] evaluation with appreciated. Advised to follow-up with [facility] clinic. Repeat ultrasound in 4 weeks' suggested. Anemia; sickle cell trait is negative. Iron deficiency anemia. Started on IV iron. Hematology evaluation with Dr. Whitmore requested. Continue by mouth iron. CT chest abdomen and pelvis is is otherwise negative other than adnexal mass. Patient needs to follow up with PMD . Needs close follow-up with hematology and [facility] as outpatient. Diagnosis; Abdominal pain Ruptured ovarian cyst/complex adnexal mass Anemia
[2017-01-21 16:32] VITALS: BP 103/58; PULSE 73; RESP 18; TEMP 98.1; O2SAT 100
[2017-01-22 11:25] LABS: HEMOGLOBIN F <1.0 Percent (<2.0)
== END 2017-01-21 18:46 | disposition home or self-care (01) | DRG 395 ==
LOC: ED 23:00 → ERH 01-19 06:00 → 5RNO 01-19 08:50 → OBSVTOIN 01-20 12:49
PROVIDERS: ADMIT Internal Medicine; ATTEND Internal Medicine
DX: D50.9 Iron deficiency anemia, unspecified (principal); N39.0 Urinary tract infection, site not specified; N83.201 Unspecified ovarian cyst, right side; R42 Dizziness and giddiness; J02.9 Acute pharyngitis, unspecified; R51 Headache

== ENCOUNTER 2017-07-23 13:49 | Emergency (ER) | payer MEDICAID ==
[2017-07-23 14:34] VITALS: TEMP 98.9; BMI 23.0
[2017-07-23] MEDS ORDERED: Sodium Chloride 0.9% 1,000 ML IV STA (14:52)
[2017-07-23 15:42] LABS: URINE BILIRUBIN NEGATIVE (NEGATIVE); URINE BLOOD TRACE-INTACT (NEGATIVE); URINE GLUCOSE (UA) NEGATIVE (NEGATIVE); URINE KETONE >=80 mg/dL (NEGATIVE); URINE LEUKOCYTE ESTERASE SMALL Leu/uL (NEGATIVE); URINE PROTEIN TRACE mg/dL (<30 mg/dL)
[2017-07-23 15:42] LABS: BASO # 0.02 K/mm3 (0.0-2.0); BASO % 0.2 % (0.0-3.0); EOS % 0.3 % (1.5-5.0); GRAN # 7.2 (1.4-6.5); GRAN % 81.2 % (50.0-68.0); HEMATOCRIT 34.3 % (36.0-48.0); LYMPH # 1.2 (1.2-3.4); LYMPH % 13.7 % (22.0-35.0); MEAN CELL VOLUME 78.9 fl (80.0-105.0); MEAN CORPUSCULAR HEMOGLOBIN 26.9 pg (25.0-35.0); MEAN CORPUSCULAR HGB CONC 34.1 g/dl (31.0-37.0); MEAN PLATELET VOLUME 9.8 fl (7.0-11.0); MONO # 0.4 (0.1-0.6); MONO % 4.6 % (1.0-6.0); RED CELL DISTRIBUTION WIDTH 12.9 % (11.5-14.5); WHITE BLOOD COUNT 8.9 10^3/ul (4.5-11.0)
[2017-07-23 15:43] LABS: URINE APPEARANCE SLIGHT-CLOUDY (CLEAR); URINE COLOR AMBER (YELLOW)
[2017-07-23 15:45] LABS: URINE AMORPHOUS SEDIMENT SMALL; URINE BACTERIA TRACE (NEG)
[2017-07-23 16:48] LABS: ALB/GLOB RATIO 1.5 (1.1-1.8); ALKALINE PHOSPHATASE 71 U/L (38-126); ALT/SGPT 27 U/L (7-56); AST/SGOT 26 U/L (14-36); BILIRUBIN,TOTAL 0.5 mg/dL (0.2-1.3); BLOOD UREA NITROGEN 10 mg/dL (7-21); CALCIUM 10.1 mg/dL (8.4-10.5); CARBON DIOXIDE 23 mmol/L (21-33); CHLORIDE 99 mmol/L (98-107); GFR AFRICAN-AMERICAN > 60; GLUCOSE,RANDOM 110 mg/dL (70-110); SODIUM 135 mmol/L (132-148); TOTAL PROTEIN 8.1 g/dL (5.8-8.3)
[2017-07-23 16:55] LABS: INR 1.35 (0.93-1.08); PARTIAL THROMBOPLASTIN TIME 39.5 Seconds (25.1-36.5)
[2017-07-23 17:10] VITALS: BP 117/63; PULSE 88; RESP 18; O2SAT 98
--- NOTE | 2017-07-23 17:27 | ED PDOC ---
Arrival/HPI - General Chief Complaint: GI Problem Time Seen by Provider: 07/23/17 14:28 Historian: Patient - History of Present Illness Narrative History of Present Illness (Text): 07/23/17 17:24 21yo female who present with complaint of nausea and vomiting x 2days. she notes that she is currently 6weeks . Have the first appointment with her OB on Tuesday. Notes that she can't keep anything down. Denies abdominal pain, vaginal bleeding, urinary symptoms, fever, chills, dizziness, any other complaint. Past Medical History - Provider Review Nursing Documentation Reviewed: Yes - Infectious Disease Hx of Infectious Diseases: None - Reproductive Menopause: No - Cardiac Hx Cardiac Disorders: No - Pulmonary Hx Respiratory Disorders: No - Neurological Hx Neurological Disorder: No - HEENT Hx HEENT Disorder: No - Renal Hx Renal Disorder: No - Endocrine/Metabolic Hx Endocrine Disorders: No - Hematological/Oncological Hx Blood Disorders: Yes Hx Anemia: Yes (01-19-17) - Integumentary Hx Dermatological Disorder: No - Musculoskeletal/Rheumatological Hx Musculoskeletal Disorders: No Hx Falls: No - Gastrointestinal Hx Gastrointestinal Disorders: No - Genitourinary/Gynecological Hx Genitourinary Disorders: No - Psychiatric Hx Psychophysiologic Disorder: No Hx Substance Use: No - Anesthesia Hx Anesthesia: No Hx Anesthesia Reactions: No Hx Malignant Hyperthermia: No Family/Social History - Physician Review Nursing Documentation Reviewed: Yes Family/Social History: Unknown Family HX Smoking Status: Never Smoked Hx Alcohol Use: Yes (SOCIALLY) Hx Substance Use: No Allergies/Home Meds Allergies/Adverse Reactions: Allergies No Known Allergies Allergy (Verified 01/19/17 11:35) Review of Systems - Physician Review All systems were reviewed & negative as marked: Yes - Review of Systems Constitutional: Normal Eyes: Normal ENT: Normal Respiratory: Normal Cardiovascular: Normal Gastrointestinal: Nausea, Vomiting. absent: Abdominal Pain, Constipation, Diarrhea, Hematochezia, Hematemesis Genitourinary Female: Normal Musculoskeletal: Normal Skin: Normal Neurological: Normal Endocrine: Normal Hemo/Lymphatic: Normal Psychiatric: Normal Physical Exam Vital Signs Reviewed: Yes Vital Signs Temp Pulse Resp BP Pulse Ox 07/23/17 17:09 88 18 117/63 98 07/23/17 14:36 133/81 07/23/17 14:27 98.9 F 97 H 16 99 Temperature: Afebrile Blood Pressure: Normal Pulse: Regular Respiratory Rate: Normal Appearance: Positive for: Well-Appearing, Non-Toxic, Comfortable Pain Distress: None Mental Status: Positive for: Alert and Oriented X 3 - Systems Exam Head: Present: Atraumatic, Normocephalic Pupils: Present: PERRL Extroacular Muscles: Present: EOMI Conjunctiva: Present: Normal Mouth: Present: Moist Mucous Membranes Neck: Present: Normal Range of Motion Respiratory/Chest: Present: Clear to Auscultation, Good Air Exchange. No: Respiratory Distress, Accessory Muscle Use Cardiovascular: Present: Regular Rate and Rhythm, Normal S1, S2. No: Murmurs Abdomen: Present: Normal Bowel Sounds. No: Tenderness, Distention, Peritoneal Signs, Rebound, Guarding, McBurney's Point Tender, Rovsing's Sign Present Back: Present: Normal Inspection Upper Extremity: Present: Normal Inspection. No: Cyanosis, Edema Lower Extremity: Present: Normal Inspection. No: Edema Neurological: Present: GCS=15, CN II-XII Intact, Speech Normal Skin: Present: Warm, Dry, Normal Color. No: Rashes Psychiatric: Present: Alert, Oriented x 3, Normal Insight, Normal Concentration Medical Decision Making ED Course and Treatment: 07/23/17 20:54 21yo female in ED for nausea and vomiting x 2days. PT was noted to tolerate fluid in ED. Lab was unremarkable with exception of small leukocyte in her UA. She was treated with Macrobid for the finding in her UA. She notes that she have appointment with her OB on Tuesday and was advised to f/u. She denied vaginal bleeding and abdominal exam was benign in ED. Advised TRT ED for any new or worsening symptoms. - Lab Interpretations Lab Results: 07/23/17 15:24 07/23/17 16:23 Lab Results 07/23/17 16:23: Beta HCG, Quant 21403.00 H 07/23/17 16:23: Sodium 135, Potassium 4.0, Chloride 99, Carbon Dioxide 23, Anion Gap 17, BUN 10, Creatinine 0.5 L, Est GFR ( Amer) > 60, Est GFR ( Non-Af Amer) > 60, Random Glucose 110, Calcium 10.1, Total Bilirubin 0.5, AST 26 , ALT 27, Alkaline Phosphatase 71, Total Protein 8.1, Albumin 4.9 H, Globulin 3.2, Albumin/Globulin Ratio 1.5 07/23/17 16:23: PT 14.8 H, INR 1.35 H, APTT 39.5 H 07/23/17 15:24: WBC 8.9 D, RBC 4.35, Hgb 11.7 L, Hct 34.3 L, MCV 78.9 L, MCH 26.9, MCHC 34.1, RDW 12.9, Plt Count 165, MPV 9.8, Gran % 81.2 H, Lymph % (Auto ) 13.7 L, [place] % (Auto) 4.6, Eos % (Auto) 0.3 L, Baso % (Auto) 0.2, Gran # 7.20 H, Lymph # 1.2, [place] # 0.4, Eos # 0.0, Baso # 0.02 07/23/17 15:20: Urine Color Addie, Urine Appearance Slight-cloudy, Urine pH 6.0 , Ur Specific [place] >= 1.030, Urine Protein Trace H, Urine Glucose (UA) Negative, Urine Ketones >=80, Urine Blood Trace-intact H, Urine Nitrate Negative , Urine Bilirubin Negative, Urine Urobilinogen 1.0 H, Ur Leukocyte Esterase Small H, Urine RBC 5 - 10, Urine WBC 5 - 10, Ur Epithelial Cells 10 - 12, Amorphous Sediment Small, Urine Bacteria Trace - Medication Orders Current Medication Orders: Discontinued Medications Famotidine (Pepcid) 20 mg IVP STAT STA Stop: 07/23/17 14:53 Last Admin: 07/23/17 17:27 Dose: 20 mg IVP Administration Document 07/23/17 17:27 (Rec: 07/23/17 17:27 [id number]) Charges for Administration # of IVP Administrations 1 Sodium Chloride (Sodium Chloride 0.9%) 1,000 mls @ 999 mls/hr IV .Q1H1M STA Stop: 07/23/17 15:52 Last Admin: 07/23/17 17:00 Dose: 999 mls/hr eMAR Start Stop Document 07/23/17 17:00 (Rec: 07/23/17 17:27 [id number]) Intravenous Solution Start Date 07/23/17 Start Time 17:00 End Date 07/23/17 End time 18:30 Total Infusion Time 90 Nitrofurantoin Macrocrystals (Macrobid) 100 mg PO ONCE STA Stop: 07/23/17 17:21 Last Admin: 07/23/17 17:40 Dose: 100 mg Ondansetron HCl (Zofran Inj) 4 mg IVP STAT STA Stop: 07/23/17 14:53 Last Admin: 07/23/17 17:27 Dose: 4 mg IVP Administration Document 07/23/17 17:27 TEREZA (Rec: 07/23/17 17:27 RG [id number]) Charges for Administration # of IVP Administrations 1 Disposition/Present on Arrival - Present on Arrival Any Indicators Present on Arrival: No History of DVT/PE: No History of Uncontrolled Diabetes: No Urinary Catheter: No History of Decub. Ulcer: No History Surgical Site Infection Following: None - Disposition Have Diagnosis and Disposition been Completed?: Yes Diagnosis: UTI (urinary tract infection), Vomiting Disposition: HOME/ ROUTINE Disposition Time: 17:30 Patient Plan: Discharge Condition: STABLE Discharge Instructions (ExitCare): Urinary Tract Infection in Women (ED), Acute Nausea and Vomiting (ED) Additional Instructions: Follow up with your OB Return to ED for any new or worsening symptoms Prescriptions: Nitrofurantoin Macrocrystals [Macrobid] 100 mg PO BID #14 cap Referrals: PCP,NO [Primary Care Provider] - Follow up with primary Forms: zlien (J[place]ican)
== END 2017-07-23 18:34 | disposition home or self-care (01) ==
LOC: ED 13:49
DX: O23.41 Unspecified infection of urinary tract in pregnancy, first trimester (principal); O21.9 Vomiting of pregnancy, unspecified; Z3A.01 Less than 8 weeks gestation of pregnancy
CPT/HCPCS: 80053; 81001; 84702; 85025; 85610; 85730; 87086; 96361; 96374; 96375; 99285; J2405; J7040